=== PATIENT | female | born 1965 | race Hispanic/Latino ===

== ENCOUNTER 2023-10-30 21:43 | Emergency (ER) | payer SELFPAY ==
[2023-10-30 21:45] VITALS: BP 124/78; PULSE 67; RESP 18; TEMP 36.5; O2SAT 99
== END 2023-10-30 22:45 | disposition left against medical advice (07) ==
PROVIDERS: PCP Physician Assistant
DX: S09.90XA Unspecified injury of head, initial encounter (principal)
CPT/HCPCS: 99199